=== PATIENT | male | born 1985 | race Caucasian/White ===

== ENCOUNTER 2019-02-20 20:12 | Inpatient (IN) | payer OTHER ==
[2019-02-20 23:14] VITALS: BMI 22.8
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
[2019-02-20] MEDS ORDERED: MELATONIN 5 MG TABLETS PO PRN (23:53)
[2019-02-20] MEDS ORDERED: BISMUTH SUBSALICYLATE 524 MG/30 ML UD PO PRN (23:53)
[2019-02-20] MEDS ORDERED: hydrOXYzine PAMOATE 25 MG CAPSULE (FP) PO PRN (23:53)
[2019-02-20] MEDS ORDERED: P-EPHED 60MG/TRIPROLIDI 2.5MG TABLET PO PRN (23:53)
[2019-02-20] MEDS ORDERED: ONDANSETRON *ODT* 4 MG TABLET SL PRN (23:53)
[2019-02-20] MEDS ORDERED: METHOCARBAMOL 500 MG TABLET PO PRN (23:53)
[2019-02-20] MEDS ORDERED: guaiFENesin 200 MG/10 ML 10 ML UNIT-DOSE CUPS PO PRN (23:53)
[2019-02-20] MEDS ORDERED: DICYCLOMINE HCL 10 MG CAPSULE PO PRN (23:53)
[2019-02-20] MEDS ORDERED: MENTHOL/PHENOL 1 EACH UD MM PRN (23:53)
[2019-02-20] MEDS ORDERED: IBUPROFEN 400 MG TABLET (FP) PO PRN (23:53)
[2019-02-20] MEDS ORDERED: ACETAMINOPHEN 325 MG TABLET (FP) PO PRN ×2 (23:53)
[2019-02-20] MEDS ORDERED: MAG HYDROX/AL HYDROX/SIMETH 30 ML UNIT-DOSE CUP PO PRN (23:53)
[2019-02-20] MEDS ORDERED: MAGNESIUM HYDROX 2400MG/30ML ORAL SUSPENSION 30 ML CUP PO PRN (23:53)
[2019-02-20] MEDS ORDERED: MAGNESIUM CITRATE 300 ML BOTTLE PO PRN (23:53)
[2019-02-21] MEDS: diazePAM 5 MG TABLET PO SCH ×3 (06:08→22:19)
[2019-02-21] MEDS ORDERED: METHADONE HCL 40 MG DISPERSABLE TABLET PO ONE (10:16)
[2019-02-21] MEDS: PRENATAL VITAMINS W/ FOLIC ACID TABLET (FP) PO SCH (10:34)
[2019-02-21] MEDS: NICOTINE 21 MG/24 HOURS TOPICAL PATCH TD SCH (10:34)
[2019-02-21] MEDS: NICOTINE POLACRILEX 2 MG GUM BUC PRN ×2 (10:34→18:07)
[2019-02-21 11:48] LABS: HEMATOCRIT 38.1 % (35.4-49); HEMOGLOBIN 13.1 GM/dL (11.7-16.9); MCH 31.1 pg (25.7-33.7); MCHC 34.4 g/dl (32.0-35.9); MEAN CELL VOLUME 90.3 fl (80-96); MEAN PLT VOLUME 9.3 fl (7.5-11.1); PLATELET COUNT 268 K/MM3 (134-434); RBC 4.22 M/mm3 (4.00-5.60); RDW 13.7 % (11.9-15.9); WHITE BLOOD COUNT 12.4 K/mm3 (4.0-10.0)
[2019-02-21 12:01] LABS: ALBUMIN 4.2 g/dl (3.4-5.0); BILIRUBIN,TOTAL 0.2 mg/dL (0.2-1); BLOOD UREA NITROGEN 11.5 mg/dL (7-18); CALCIUM 8.9 mg/dL (8.5-10.1); TOT PROT 6.8 g/dl (6.4-8.2)
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
--- NOTE | 2019-02-21 12:41 | PN ---
[facility] CIWA - CIWA Score Nausea/Vomitin-Mild Nausea/No Vomiting Muscle Tremors: 3 Anxiety: 3 Agitation: 2 Paroxysmal Sweats: 3 Orientation: 1-Uncertain about Date Tacttile Disturbances: 1-Very Mild Itch/Numbness Auditory Disturbances: 1-Very Mild Visual Disturbances: 0-None Headache: 1-Very Mild CIWA-Ar Total Score: 16 S Progress Note (SOAP) Subjective: 33 years old male admitted on 02/20/19 for alcohol and benzo withdrawal sx management treated with valium detox regimen feeling better today received methadone 200 mg today and 190 mg yesterday due to the patient had not taking methadone 200 mg daily last dosage was "few days ago" gradually titrating up to 200mg patient tolerated well ambulating on hallway "doing well" that he had methadone 200 mg today Objective: 02/21/19 12:40 Vital Signs Temperature 98.5 F 02/21/19 09:30 Pulse Rate 71 02/21/19 09:30 Respiratory Rate 18 02/21/19 09:30 Blood Pressure 127/69 02/21/19 09:30 O2 Sat by Pulse Oximetry (%) Laboratory Last Values WBC 12.4 K/mm3 (4.0-10.0) H 02/21/19 08:00 RBC 4.22 M/mm3 (4.00-5.60) 02/21/19 08:00 Hgb 13.1 GM/dL (11.7-16.9) 02/21/19 08:00 Hct 38.1 % (35.4-49) 02/21/19 08:00 MCV 90.3 fl (80-96) 02/21/19 08:00 MCH 31.1 pg (25.7-33.7) 02/21/19 08:00 MCHC 34.4 g/dl (32.0-35.9) 02/21/19 08:00 RDW 13.7 % (11.9-15.9) 02/21/19 08:00 Plt Count 268 K/MM3 (134-434) 02/21/19 08:00 MPV 9.3 fl (7.5-11.1) 02/21/19 08:00 Sodium 138 mmol/L (136-145) 02/21/19 08:00 Potassium 5.0 mmol/L (3.5-5.1) 02/21/19 08:00 Chloride 104 mmol/L (98-107) 02/21/19 08:00 Carbon Dioxide 28 mmol/L (21-32) 02/21/19 08:00 Anion Gap 7 MMOL/L (8-16) L 02/21/19 08:00 BUN 11.5 mg/dL (7-18) 02/21/19 08:00 Creatinine 1.0 mg/dL (0.55-1.3) 02/21/19 08:00 Est GFR (CKD-EPI)AfAm 115.72 02/21/19 08:00 Est GFR (CKD-EPI)NonAf 99.85 02/21/19 08:00 Random Glucose 100 mg/dL (74-106) 02/21/19 08:00 Calcium 8.9 mg/dL (8.5-10.1) 02/21/19 08:00 Total Bilirubin 0.2 mg/dL (0.2-1) 02/21/19 08:00 AST 26 U/L (15-37) 02/21/19 08:00 ALT 23 U/L (13-61) 02/21/19 08:00 Alkaline Phosphatase 72 U/L (45-117) 02/21/19 08:00 Total Protein 6.8 g/dl (6.4-8.2) 02/21/19 08:00 Albumin 4.2 g/dl (3.4-5.0) 02/21/19 08:00 RPR Titer Nonreactive (NONREACTIVE) 02/21/19 08:00 lab noted Assessment: 02/21/19 12:40 alcohol and benzo withdrawal Plan: valium regimen
[2019-02-21] MEDS: diazePAM 5 MG TABLET PO PRN (19:31)
[2019-02-21] MEDS: THIAMINE HCL 100 MG TABLET (FP) PO SCH (22:18)
[2019-02-22] MEDS: METHADONE HCL 40 MG DISPERSABLE TABLET PO SCH (05:15)
[2019-02-22] MEDS: diazePAM 5 MG TABLET PO SCH ×2 (05:15→17:41)
[2019-02-22] MEDS: NICOTINE POLACRILEX 2 MG GUM BUC PRN ×4 (05:26→20:56)
[2019-02-22] MEDS: PRENATAL VITAMINS W/ FOLIC ACID TABLET (FP) PO SCH (09:47)
[2019-02-22] MEDS: diazePAM 5 MG TABLET PO PRN ×2 (09:52→22:11)
[2019-02-22] MEDS: NICOTINE 21 MG/24 HOURS TOPICAL PATCH TD SCH (09:57)
--- NOTE | 2019-02-22 11:16 | PN ---
[facility] CIWA - CIWA Score Nausea/Vomitin-Mild Nausea/No Vomiting Muscle Tremors: 3 Anxiety: 2 Agitation: 1-Slight > Activity Paroxysmal Sweats: 2 Orientation: 0-Oriented Tacttile Disturbances: 1-Very Mild Itch/Numbness Auditory Disturbances: 0-None Visual Disturbances: 0-None Headache: 1-Very Mild CIWA-Ar Total Score: 11 S Progress Note (SOAP) Subjective: 33 years old male admitted on 02/20/19 for alcohol and benzo withdrawal sx management treating with valium detox regimen feeling better today ate breakfast ambulating on hallway social with peers in day room discuss aftercare with staff patient prefers to go to [facility] Objective: 02/22/19 11:17 Vital Signs Temperature 96.8 F L 02/22/19 06:17 Pulse Rate 66 02/22/19 06:17 Respiratory Rate 18 02/22/19 06:17 Blood Pressure 148/84 02/22/19 06:17 O2 Sat by Pulse Oximetry (%) Laboratory Last Values WBC 12.4 K/mm3 (4.0-10.0) H 02/21/19 08:00 RBC 4.22 M/mm3 (4.00-5.60) 02/21/19 08:00 Hgb 13.1 GM/dL (11.7-16.9) 02/21/19 08:00 Hct 38.1 % (35.4-49) 02/21/19 08:00 MCV 90.3 fl (80-96) 02/21/19 08:00 MCH 31.1 pg (25.7-33.7) 02/21/19 08:00 MCHC 34.4 g/dl (32.0-35.9) 02/21/19 08:00 RDW 13.7 % (11.9-15.9) 02/21/19 08:00 Plt Count 268 K/MM3 (134-434) 02/21/19 08:00 MPV 9.3 fl (7.5-11.1) 02/21/19 08:00 Sodium 138 mmol/L (136-145) 02/21/19 08:00 Potassium 5.0 mmol/L (3.5-5.1) 02/21/19 08:00 Chloride 104 mmol/L (98-107) 02/21/19 08:00 Carbon Dioxide 28 mmol/L (21-32) 02/21/19 08:00 Anion Gap 7 MMOL/L (8-16) L 02/21/19 08:00 BUN 11.5 mg/dL (7-18) 02/21/19 08:00 Creatinine 1.0 mg/dL (0.55-1.3) 02/21/19 08:00 Est GFR (CKD-EPI)AfAm 115.72 02/21/19 08:00 Est GFR (CKD-EPI)NonAf 99.85 02/21/19 08:00 Random Glucose 100 mg/dL (74-106) 02/21/19 08:00 Calcium 8.9 mg/dL (8.5-10.1) 02/21/19 08:00 Total Bilirubin 0.2 mg/dL (0.2-1) 02/21/19 08:00 AST 26 U/L (15-37) 02/21/19 08:00 ALT 23 U/L (13-61) 02/21/19 08:00 Alkaline Phosphatase 72 U/L (45-117) 02/21/19 08:00 Total Protein 6.8 g/dl (6.4-8.2) 02/21/19 08:00 Albumin 4.2 g/dl (3.4-5.0) 02/21/19 08:00 RPR Titer Nonreactive (NONREACTIVE) 02/21/19 08:00 lab noted Assessment: 02/22/19 11:20 alcohol and benzo withdrawal Plan: valium regiment
[2019-02-22] MEDS: amLODIPine BESYLATE 5 MG TABLET (FP) PO SCH (22:11)
[2019-02-22] MEDS: THIAMINE HCL 100 MG TABLET (FP) PO SCH (22:11)
[2019-02-23] MEDS: METHADONE HCL 40 MG DISPERSABLE TABLET PO SCH (05:14)
[2019-02-23] MEDS ORDERED: diazePAM 5 MG TABLET PO ONE (06:00)
[2019-02-23] MEDS: NICOTINE POLACRILEX 2 MG GUM BUC PRN (08:22)
--- NOTE | 2019-02-23 08:38 | PN ---
[facility] CIWA - CIWA Score Nausea/Vomitin-No Nausea/No Vomiting Muscle Tremors: 1-None Visible, but [place] Anxiety: 1-Mildly Anxious Agitation: 1-Slight > Activity Paroxysmal Sweats: No Perspiration Orientation: 0-Oriented Tacttile Disturbances: 3-Moderate Itch/Numb/Burn Auditory Disturbances: 0-None Visual Disturbances: 0-None Headache: 0-None Present CIWA-Ar Total Score: 6 [facility] Progress Note (SOAP) Subjective: alert,no complaint,mild anxious Objective: 02/23/19 08:35 Vital Signs Temperature 96.4 F L 02/23/19 06:15 Pulse Rate 79 02/23/19 06:15 Respiratory Rate 18 02/23/19 06:15 Blood Pressure 116/59 L 02/23/19 06:15 O2 Sat by Pulse Oximetry (%) Assessment: detox completd,no withdrawal symptom Plan: discharged today,follow up with after care program as arrangement
--- NOTE | 2019-02-23 08:43 | DS ---
[facility] Detox Discharge Summary Admission Date: 02/21/19 Discharge Date: 02/23/19 - History Present History: Alcohol Dependence, Opioid Dependence, Sedative Dependence, MMTP Additional Comments: follow up with after care [facility] as arrangement Pertinent Past History: nicotine dependence history of bipolar disorder - Physical Exam Results Vital Signs: Vital Signs Temperature 96.4 F L 02/23/19 06:15 Pulse Rate 79 02/23/19 06:15 Respiratory Rate 18 02/23/19 06:15 Blood Pressure 116/59 L 02/23/19 06:15 O2 Sat by Pulse Oximetry (%) Pertinent Admission Physical Exam Findings: withdrawal signs and symptom Laboratory Last Values WBC 12.4 K/mm3 (4.0-10.0) H 02/21/19 08:00 RBC 4.22 M/mm3 (4.00-5.60) 02/21/19 08:00 Hgb 13.1 GM/dL (11.7-16.9) 02/21/19 08:00 Hct 38.1 % (35.4-49) 02/21/19 08:00 MCV 90.3 fl (80-96) 02/21/19 08:00 MCH 31.1 pg (25.7-33.7) 02/21/19 08:00 MCHC 34.4 g/dl (32.0-35.9) 02/21/19 08:00 RDW 13.7 % (11.9-15.9) 02/21/19 08:00 Plt Count 268 K/MM3 (134-434) 02/21/19 08:00 MPV 9.3 fl (7.5-11.1) 02/21/19 08:00 Sodium 138 mmol/L (136-145) 02/21/19 08:00 Potassium 5.0 mmol/L (3.5-5.1) 02/21/19 08:00 Chloride 104 mmol/L (98-107) 02/21/19 08:00 Carbon Dioxide 28 mmol/L (21-32) 02/21/19 08:00 Anion Gap 7 MMOL/L (8-16) L 02/21/19 08:00 BUN 11.5 mg/dL (7-18) 02/21/19 08:00 Creatinine 1.0 mg/dL (0.55-1.3) 02/21/19 08:00 Est GFR (CKD-EPI)AfAm 115.72 02/21/19 08:00 Est GFR (CKD-EPI)NonAf 99.85 02/21/19 08:00 Random Glucose 100 mg/dL (74-106) 02/21/19 08:00 Calcium 8.9 mg/dL (8.5-10.1) 02/21/19 08:00 Total Bilirubin 0.2 mg/dL (0.2-1) 02/21/19 08:00 AST 26 U/L (15-37) 02/21/19 08:00 ALT 23 U/L (13-61) 02/21/19 08:00 Alkaline Phosphatase 72 U/L (45-117) 02/21/19 08:00 Total Protein 6.8 g/dl (6.4-8.2) 02/21/19 08:00 Albumin 4.2 g/dl (3.4-5.0) 02/21/19 08:00 RPR Titer Nonreactive (NONREACTIVE) 02/21/19 08:00 Vital Signs Temperature 96.4 F L 02/23/19 06:15 Pulse Rate 79 02/23/19 06:15 Respiratory Rate 18 02/23/19 06:15 Blood Pressure 116/59 L 02/23/19 06:15 O2 Sat by Pulse Oximetry (%) - Treatment Hospital Course: Detox Protocol Followed, Detoxed Safely, Responded well, Discharged Condition Good, Rehab Referral Accepted - Medication Discharge Medications: Ambulatory Orders NK [No Known Home Medication] 02/20/19 - Diagnosis (1) Alcohol dependence with uncomplicated withdrawal Current Visit: Yes Status: Acute (2) Sedative, hypnotic or anxiolytic dependence with withdrawal, uncomplicated Current Visit: Yes Status: Acute (3) History of bipolar disorder Current Visit: Yes Status: Chronic (4) Nicotine dependence Current Visit: Yes Status: Chronic - AMA Did Patient Leave Against Medical Advice: No
[2019-02-23 09:31] VITALS: BP 151/91; PULSE 87; TEMP 98
[2019-02-23] MEDS: PRENATAL VITAMINS W/ FOLIC ACID TABLET (FP) PO SCH (09:47)
[2019-02-23] MEDS: amLODIPine BESYLATE 5 MG TABLET (FP) PO SCH (09:47)
[2019-02-23] MEDS: NICOTINE 21 MG/24 HOURS TOPICAL PATCH TD SCH (09:47)
[2019-02-23 11:11] LABS: PH,URINE 7.5 (5.0-8.0); URINE APPEARANCE CLOUDY; URINE BILIRUBIN NEGATIVE (NEGATIVE); URINE COLOR YELLOW; URINE GLUCOSE (UA) NEGATIVE (NEGATIVE); URINE KETONE NEGATIVE (NEGATIVE); URINE LEUK ESTERASE NEGATIVE (NEGATIVE); URINE NITRITE NEGATIVE (NEGATIVE); URINE PROTEIN NEGATIVE (NEGATIVE); URINE UROBILINOGEN 0.2 mg/dL (0.2-1.0)
== END 2019-02-23 09:35 | disposition home or self-care (01) | DRG 773 ==
LOC: YASAS 20:12 → Y3N 02-21 00:05
PROVIDERS: ADMIT Allergy & Immunology; ATTEND Allergy & Immunology
PROC: HZ2ZZZZ Detoxification Services for Substance Abuse Treatment (ICD-10-PCS; principal; 2019-02-21)
DX: F10.230 Alcohol dependence with withdrawal, uncomplicated (principal); F11.20 Opioid dependence, uncomplicated; F13.230 Sedative, hypnotic or anxiolytic dependence with withdrawal, uncomplicated; F12.20 Cannabis dependence, uncomplicated; F17.210 Nicotine dependence, cigarettes, uncomplicated; F19.24 Other psychoactive substance dependence with psychoactive substance-induced mood disorder; I10 Essential (primary) hypertension; G40.909 Epilepsy, unspecified, not intractable, without status epilepticus; K21.9 Gastro-esophageal reflux disease without esophagitis; E78.5 Hyperlipidemia, unspecified; M19.90 Unspecified osteoarthritis, unspecified site; Z91.19 Patient's noncompliance with other medical treatment and regimen; Z86.19 Personal history of other infectious and parasitic diseases; Z91.5 Personal history of self-harm; Z59.0 Homelessness
CPT/HCPCS: 36415; 80053; 81003; 85027; 86593